=== PATIENT | male | born 1960 | race African-American/Black ===

== ENCOUNTER 2022-10-28 14:52 | Emergency (ER) | payer MEDICAID ==
[~2022-10-28] VITALS: Ht 170.2 cm; Wt 79.0 kg
[2022-10-28 15:05] VITALS: BP 173/95
[2022-10-28] MEDS ORDERED: IBUPROFEN 600MG TABLET PO STA (18:38)
[2022-10-28 19:28] LABS: BASOPHILS % 0.7 % (0.0-2.0); EOSINOPHILS % 1.4 % (0.0-5.0); HEMATOCRIT. 40.6 % (42.0-52.0); HEMOGLOBIN. 13.5 g/dL (14.0-18.0); LYMPHOCYTES % 37.9 % (20.0-50.0); MEAN CORPUSCULAR HEMOGLOBIN 30.5 pg (28.0-32.0); MEAN CORPUSCULAR VOLUME 91.9 fL (80.0-94.0); MEAN PLATELET VOLUME 7.1 fl (7.4-10.4); MONOCYTES % 8.6 % (2.0-8.0); NEUTROPHILS % 51.4 % (40.0-76.0); PLATELET 223 x1000/uL (130-400); RED BLOOD CELL COUNT 4.42 mill/uL (4.7-6.1); RED CELL DISTRIBUTION WIDTH 14.2 % (11.6-14.6)
[2022-10-28 19:32] LABS: CHLORIDE 104 mEq/L (98-107)
[2022-10-28] MEDS ORDERED: IBUP-2029 MT (20:00)
[2022-10-28] MEDS ORDERED: IBUPROFEN 600MG TABLET PO ONE (20:15)
== END 2022-10-28 20:15 | disposition home or self-care (01) ==
LOC: ER 14:59
DX: R07.89 Other chest pain (principal); J45.909 Unspecified asthma, uncomplicated; Z87.828 Personal history of other (healed) physical injury and trauma; Z98.890 Other specified postprocedural states
CPT/HCPCS: 36415; 71045; 80053; 84484; 85025; 93005; 99285